=== PATIENT | male | born 1990 | race Caucasian/White ===

== ENCOUNTER 2022-04-25 13:46 | Emergency (ER) | payer MEDICAID ==
[~2022-04-25] VITALS: Ht 172.7 cm; Wt 75.0 kg
[~2022-04-25 13:46] MED LIST: KEPP500 PO; L25 PO; NEPVIT PO; THIA100T72 PO
[2022-04-25 13:57] VITALS: BP 121/74
[2022-04-25] MEDS ORDERED: CHLORDIAZEPOXIDE 25MG CAPSULE PO ONE (15:15)
[2022-04-25] MEDS ORDERED: SODIUM CHLORIDE 0.9% 1,000 ML IV ONE (15:15)
[2022-04-25 16:21] LABS: BASOPHILS % 0.7 % (0.0-2.0); EOSINOPHILS % 2.3 % (0.0-5.0); LYMPHOCYTES % 37.7 % (20.0-50.0); MEAN CORPUSCULAR VOLUME 101.8 fL (80.0-94.0); MEAN PLATELET VOLUME 8.5 fl (7.4-10.4); MONOCYTES % 5.1 % (2.0-8.0); NEUTROPHILS % 54.2 % (40.0-76.0); PLATELET 95 x1000/uL (130-400); RED BLOOD CELL COUNT 4.42 mill/uL (4.7-6.1); RED CELL DISTRIBUTION WIDTH 15.5 % (11.6-14.6)
[2022-04-25] MEDS ORDERED: DIAZEPAM 5 MG/ML 2ML CPJ IV ONE (16:30)
[2022-04-25 17:01] LABS: CHLORIDE 108 mEq/L (98-107)
[2022-04-25 17:11] LABS: ETHANOL BLOOD 221 mg/dL
== END 2022-04-25 19:26 | disposition left against medical advice (07) ==
LOC: ER 14:24
DX: F10.239 Alcohol dependence with withdrawal, unspecified (principal); Y90.7 Blood alcohol level of 200-239 mg/100 ml; F32.9 Major depressive disorder, single episode, unspecified
CPT/HCPCS: 36415; 80053; 80320; 83690; 85025; 96361; 96374; 99283; J3360; J7030; G0480

== ENCOUNTER 2022-05-28 12:49 | Emergency (ER) | payer MEDICAID ==
[~2022-05-28] VITALS: Ht 162.6 cm; Wt 64.0 kg
[2022-05-28] MEDS ORDERED: SODIUM CHLORIDE 0.9% 1,000 ML IV ONE (13:00)
[2022-05-28] MEDS ORDERED: DIAZEPAM 5 MG/ML 2ML CPJ IV ONE (13:00)
[2022-05-28 15:20] LABS: BASOPHILS % 0.5 % (0.0-2.0); EOSINOPHILS % 0.4 % (0.0-5.0); HEMATOCRIT. 51.8 % (42.0-52.0); HEMOGLOBIN. 17.6 g/dL (14.0-18.0); MEAN CORPUSCULAR HEMOGLOBIN 33.8 pg (28.0-32.0); MEAN CORPUSCULAR VOLUME 99.3 fL (80.0-94.0); MEAN PLATELET VOLUME 7.9 fl (7.4-10.4); MONOCYTES % 5.1 % (2.0-8.0); PLATELET 349 x1000/uL (130-400); RED BLOOD CELL COUNT 5.22 mill/uL (4.7-6.1); RED CELL DISTRIBUTION WIDTH 14.5 % (11.6-14.6)
[2022-05-28 15:28] LABS: CHLORIDE 103 mEq/L (98-107)
[2022-05-28 15:36] LABS: ETHANOL BLOOD 183 mg/dL
[2022-05-28] MEDS ORDERED: CHLORDIAZEPOXIDE 25MG CAPSULE PO ONE (16:00)
[2022-05-28] MEDS ORDERED: PANTOPRAZOLE SODIUM 40 MG/VIAL IV ONE (16:00)
[2022-05-28 16:44] LABS: CLARITY URINE CLEAR (CLEAR); COLOR URINE YELLOW (YELLOW); KETONES URINE NEGATIVE (NEGATIVE); LEUKOCYTE ESTERASE URINE NEGATIVE (NEGATIVE); NITRITE URINE NEGATIVE (NEGATIVE); OCCULT BLOOD URINE NEGATIVE (NEGATIVE); PROTEIN URINE NEGATIVE (NEGATIVE); SPECIFIC GRAVITY URINE 1.006 (1.005-1.030); UROBILINOGEN URINE 0.2 E.U./dL (0.2-1.0)
[2022-05-28 17:25] LABS: *AMPHETAMINES SCREEN URINE NEGATIVE (NEGATIVE); *BARBITURATES SCREEN URINE NEGATIVE (NEGATIVE); *BENZODIAZEPINES SCREEN URINE PRESUMTIVE POSITIVE (NEGATIVE); *COCAINE SCREEN URINE NEGATIVE (NEGATIVE); CANNABINOID URINE SCREEN NEGATIVE (NEGATIVE); METHADONE URINE SCREEN NEGATIVE (NEGATIVE); OPIATES URINE SCREEN NEGATIVE (NEGATIVE); PHENCYCLIDINE URINE SCREEN NEGATIVE (NEGATIVE)
[2022-05-28] MEDS ORDERED: CHLORDIAZEPOXIDE 25MG CAPSULE PO NR (18:00)
[2022-05-28] MEDS ORDERED: PANTOPRAZOLE SODIUM 40 MG/VIAL IV NR (18:00)
[2022-05-28 18:49] VITALS: BP 140/82
[2022-05-28] MEDS ORDERED: CHLO25CA10 MT (18:55)
== END 2022-05-28 20:41 | disposition home or self-care (01) ==
LOC: ER 12:58
DX: F10.239 Alcohol dependence with withdrawal, unspecified (principal); F10.229 Alcohol dependence with intoxication, unspecified; R56.9 Unspecified convulsions; Y90.6 Blood alcohol level of 120-199 mg/100 ml
CPT/HCPCS: 36415; 80053; 80305; 80320; 81003; 85025; 96361; 96374; 96375; 99284; C9113; J3360; J7030; G0480

== ENCOUNTER 2022-06-27 22:07 | Emergency (ER) | payer MEDICAID ==
[~2022-06-27] VITALS: Ht 177.8 cm; Wt 77.0 kg
[~2022-06-27 22:07] MED LIST changes: +CHLO25CA10 MT
[2022-06-27 22:43] LABS: BASOPHILS % 0.8 % (0.0-2.0); EOSINOPHILS % 0.9 % (0.0-5.0); HEMATOCRIT. 46.1 % (42.0-52.0); HEMOGLOBIN. 15.9 g/dL (14.0-18.0); MEAN CORPUSCULAR HEMOGLOBIN 34.8 pg (28.0-32.0); MEAN CORPUSCULAR VOLUME 100.9 fL (80.0-94.0); MONOCYTES % 6.7 % (2.0-8.0); NEUTROPHILS % 51.6 % (40.0-76.0); PLATELET 319 x1000/uL (130-400); RED BLOOD CELL COUNT 4.57 mill/uL (4.7-6.1); RED CELL DISTRIBUTION WIDTH 13.3 % (11.6-14.6)
[2022-06-27 22:51] LABS: CHLORIDE 107 mEq/L (98-107)
[2022-06-27 23:11] LABS: ETHANOL BLOOD 357 mg/dL
[2022-06-28 10:28] LABS: CLARITY URINE CLEAR (CLEAR); COLOR URINE YELLOW (YELLOW); KETONES URINE NEGATIVE (NEGATIVE); LEUKOCYTE ESTERASE URINE NEGATIVE (NEGATIVE); NITRITE URINE NEGATIVE (NEGATIVE); OCCULT BLOOD URINE NEGATIVE (NEGATIVE); PROTEIN URINE NEGATIVE (NEGATIVE); SPECIFIC GRAVITY URINE 1.022 (1.005-1.030); UROBILINOGEN URINE 0.2 E.U./dL (0.2-1.0)
[2022-06-28 10:39] LABS: *AMPHETAMINES SCREEN URINE NEGATIVE (NEGATIVE); *BARBITURATES SCREEN URINE NEGATIVE (NEGATIVE); *BENZODIAZEPINES SCREEN URINE NEGATIVE (NEGATIVE); *COCAINE SCREEN URINE NEGATIVE (NEGATIVE); CANNABINOID URINE SCREEN NEGATIVE (NEGATIVE); METHADONE URINE SCREEN NEGATIVE (NEGATIVE); OPIATES URINE SCREEN NEGATIVE (NEGATIVE); PHENCYCLIDINE URINE SCREEN NEGATIVE (NEGATIVE)
[2022-06-28] MEDS: FLUOXETINE HCL 10 MG CAPSULE PO SCH (11:55)
[2022-06-28] MEDS ORDERED: DIAZEPAM 2 MG TABLET PO ONE (15:15)
[2022-06-28] MEDS ORDERED: DIAZEPAM 5 MG/ML 2ML CPJ IM ONE (19:30)
[2022-06-28] MEDS ORDERED: CLONAZEPAM 1MG TABLET PO SCH (21:00)
[2022-06-29] MEDS: FLUOXETINE HCL 10 MG CAPSULE PO SCH (09:09)
[2022-06-29 11:51] VITALS: BP 124/89
== END 2022-06-29 15:20 | disposition still patient (30) ==
LOC: ER 22:07
DX: R45.850 Homicidal ideations (principal); F10.229 Alcohol dependence with intoxication, unspecified; Y90.8 Blood alcohol level of 240 mg/100 ml or more; F32.9 Major depressive disorder, single episode, unspecified; Z79.899 Other long term (current) drug therapy; Z20.822 Contact with and (suspected) exposure to COVID-19
CPT/HCPCS: 36415; 80053; 80305; 80307; 80320; 80329; 81003; 84443; 85025; 99285; C9803; U0003; U0005; G0480